=== PATIENT | female | born 1960 | race Native Hawaiian/Other Pacific Islander ===

== ENCOUNTER → 2017-11-17 | Outpatient (CLI) | payer BC | LOC: MC.RAD 11-05 07:40 | DX: Z12.31 Encounter for screening mammogram for malignant neoplasm of breast (principal) ==

== ENCOUNTER 2018-05-05 07:08 | Day surgery (SDC) | payer BC ==
[~2018-05-05] VITALS: Ht 157.5 cm; Wt 91.9 kg
[2018-05-05 07:24] VITALS: BP 170/94; PULSE 89; TEMP 98.7
[2018-05-05] MEDS ORDERED: HYZAAR 25 MG-101 TAB PO (07:24)
[2018-05-05 08:55] VITALS: BP 139/79; PULSE 81; TEMP 98.4
[2018-05-05 09:10] VITALS: BP 132/79; PULSE 76
[2018-05-05 09:25] VITALS: BP 132/77; PULSE 78
== END 2018-05-05 09:40 | disposition home or self-care (01) ==
LOC: SDCO 07:08
DX: Z12.11 Encounter for screening for malignant neoplasm of colon (principal); K64.0 First degree hemorrhoids; I10 Essential (primary) hypertension; Z90.79 Acquired absence of other genital organ(s); Z88.0 Allergy status to penicillin
CPT/HCPCS: J2250; J3010; J7030

== ENCOUNTER → 2021-06-22 | Outpatient (CLI) | payer BC ==
[~2021-06-22] MED LIST: HYZAAR 25 MG-101 TAB PO
== END ==
LOC: MC.RAD 09:27
DX: Z12.31 Encounter for screening mammogram for malignant neoplasm of breast (principal)

== ENCOUNTER → 2022-01-16 | Outpatient (CLI) | payer BC | LOC: DIA.ED | DX: E11.9 Type 2 diabetes mellitus without complications (principal); Z79.84 Long term (current) use of oral hypoglycemic drugs; I10 Essential (primary) hypertension | CPT/HCPCS: G0108 ==

== ENCOUNTER → 2023-09-01 | Outpatient (CLI) | payer BC | LOC: MC.RAD 06:58 | DX: Z12.31 Encounter for screening mammogram for malignant neoplasm of breast (principal) ==